=== PATIENT | male | born 1965 | race Caucasian/White ===

== ENCOUNTER → 2016-08-13 | Outpatient (CLI) | payer BC ==
[~2016-08-13] MED LIST: ALLEGRA 180MG180 MG PO; ALLEGRA180 MG PO; AMITRIPTYLINE H10 M1 PO; ATROVENT I0.2 MG/1 M IH; CALAN80 MG PO; ECHINACEA 5001 EACH PO; FLONASEALLERGY NS; GENTAMICIN180 MG/502 NS; HUMIRA40 MG/0.8 MR; IMITREX100 MG PO; KLONOPIN 0.5MG0.5 MG PO; LEVAQUIN 5500 MG/TA1 PO; LEVAQUIN 750MG750 M1 PO; LIDEX CR 15GM TP; MAGNESIUM250 M1 PO; METHYLPREDNISONE4 MG PO; MUCINEX 60600 MG/TA1 PO; NEXIUM 40MG40 MG PO; NIACIN500 MG PO; ORAPRED ODT30 MG PO; PENTASA500 MG PO; PREDNISONE20 MG PO; PROVENTIL0.09 MG/A1 IH; RELPAX 40MG TAB40 MG PO; RT ADVAIR 528 DISKUS IH; SINGULAIR 110 MG/TAB PO; SINGULAIR10 MG PO; SPIRIVA RESPIMAT4 GM IH; VALTREX 50500 MG/TAB PO; VITAMIN C500 MG PO
== END ==
LOC: BHSO 13:08
DX: F41.1 Generalized anxiety disorder (principal)

== ENCOUNTER → 2017-02-02 | Outpatient (CLI) | payer BC | LOC: BHSO 14:45 | DX: F41.1 Generalized anxiety disorder (principal) ==

== ENCOUNTER → 2017-08-03 | Outpatient (CLI) | payer BC | LOC: BHSO 14:37 | DX: F90.0 Attention-deficit hyperactivity disorder, predominantly inattentive type (principal) | CPT/HCPCS: G0463 ==

== ENCOUNTER → 2019-03-14 | Outpatient (CLI) | payer BC | LOC: COL.VAS 10:36 | DX: M51.27 Other intervertebral disc displacement, lumbosacral region (principal); M48.07 Spinal stenosis, lumbosacral region; R25.2 Cramp and spasm ==

== ENCOUNTER 2019-10-13 09:02 | Outpatient (RCR) | payer BC | END 2020-01-11 | disposition home or self-care (01) | LOC: WSST | DX: R13.10 Dysphagia, unspecified (principal) ==

== ENCOUNTER → 2019-10-18 | Outpatient (CLI) | payer BC | LOC: COL.RAD 12:18 | DX: R13.12 Dysphagia, oropharyngeal phase (principal) ==